=== PATIENT | male | born 1995 | race Caucasian/White ===

== ENCOUNTER → 2020-10-01 12:36 | Outpatient (CLI) | payer OTHER, SELFPAY ==
--- NOTE | 2020-10-01 | DI.MRI.S_ITS ---
PROCEDURE: MR THORACIC SPINE WO CON INDICATIONS: Spondylosis without myelopathy or radiculopathy, l TECHNIQUE: Noncontrast sagittal T1 spine echo and T2 fast spin echo, sagittal STIR, axial T1 and T2 fast spin echo through the thoracic spine. COMPARISON: None. FINDINGS: Image quality: Excellent. Alignment and Curvature: There is normal bony alignment. Bone Marrow: Marrow is of normal overall signal. No acute vertebral body compression fractures. Spinal Cord: Visualized spinal cord is normal in size and signal. Paraspinous Soft Tissues: No paravertebral masses. Miscellaneous: Slight loss of disc signal noted in the T6-T7 disc. No central stenosis. No neural foraminal narrowing. No neural compression. IMPRESSION: 1. Minimal T6-T7 degenerative disc disease. 2. No central stenosis. 3. No neural foraminal narrowing. 4. No neural compression. Dictated by: Mariya Lambert MD, PhD on 10/01/2020 at 21:54 Approved by: Mariya Lambert MD, PhD on 10/01/2020 at 21:56
== END ==
PROVIDERS: Referring Provider Physical Medicine & Rehabilitation Pain Medicine; Visit Provider Physical Medicine & Rehabilitation Pain Medicine
DX: M47.816 Spondylosis without myelopathy or radiculopathy, lumbar region (principal)
CPT/HCPCS: 72146